=== PATIENT | female | born 1955 | race Caucasian/White ===

== ENCOUNTER 2018-05-24 08:02 | Day surgery (SDC) | payer MEDICARE ==
[~2018-05-24] VITALS: Ht 158.8 cm; Wt 83.8 kg
[2018-05-24 08:56] VITALS: BP 123/62; PULSE 75; TEMP 98.3
[2018-05-24] MEDS ORDERED: PROAIR HFA0.09 MG/AC IH (09:09)
[2018-05-24] MEDS ORDERED: HUMALOG100 U/ML SQ (09:10)
[2018-05-24] MEDS ORDERED: LANTUS100 U/ML SQ (09:11)
[2018-05-24] MEDS ORDERED: NEURONTIN600 MG/TAB PO (09:12)
[2018-05-24] MEDS ORDERED: EFFE25TA PO (09:12)
[2018-05-24] MEDS ORDERED: PRINZIDE 12.5 M1 TAB PO (09:14)
[2018-05-24] MEDS ORDERED: ZOCOR 40MG40 MG PO (09:14)
[2018-05-24] MEDS ORDERED: INVOKAMET PO (09:16)
[2018-05-24 09:35] VITALS: BP 112/62; PULSE 76; TEMP 98.2
[2018-05-24 09:50] VITALS: BP 111/53; PULSE 79
[2018-05-24 10:05] VITALS: BP 108/62; PULSE 68
== END 2018-05-24 10:33 | disposition home or self-care (01) ==
LOC: SDCO 08:02
DX: K22.70 Barrett's esophagus without dysplasia (principal); K21.9 Gastro-esophageal reflux disease without esophagitis; K76.6 Portal hypertension; K74.60 Unspecified cirrhosis of liver; I85.10 Secondary esophageal varices without bleeding; F32.9 Major depressive disorder, single episode, unspecified; F41.9 Anxiety disorder, unspecified; R16.0 Hepatomegaly, not elsewhere classified; D69.6 Thrombocytopenia, unspecified; Z90.710 Acquired absence of both cervix and uterus; Z90.49 Acquired absence of other specified parts of digestive tract; E11.9 Type 2 diabetes mellitus without complications; Z85.3 Personal history of malignant neoplasm of breast; Z92.3 Personal history of irradiation; Z92.21 Personal history of antineoplastic chemotherapy; Z85.41 Personal history of malignant neoplasm of cervix uteri
CPT/HCPCS: J2250; J3010; J7030

== ENCOUNTER → 2018-06-19 | Outpatient (CLI) | payer MEDICARE ==
[~2018-06-19] MED LIST: EFFE25TA PO; HUMALOG100 U/ML SQ; INVOKAMET PO; LANTUS100 U/ML SQ; NEURONTIN600 MG/TAB PO; PRINZIDE 12.5 M1 TAB PO; PROAIR HFA0.09 MG/AC IH; ZOCOR 40MG40 MG PO
== END ==
LOC: MC.RAD 10:00
DX: R92.0 Mammographic microcalcification found on diagnostic imaging of breast (principal); Z98.82 Breast implant status

== ENCOUNTER 2021-02-01 10:06 | Day surgery (SDC) | payer MEDICARE, MEDICAID ==
[2021-02-01] VITALS (7 sets, daily range): BP systolic 150–181; BP diastolic 91–98; PULSE 78–95
[~2021-02-01] VITALS: Ht 160 cm; Wt 78.8 kg
[2021-02-01 11:02] LABS: HEMATOCRIT 40.1 % (37.0-47.0); HEMOGLOBIN 13.1 g/dl (12.5-16.0); MEAN CELL VOLUME 84 fl (80.0-100.0); MEAN CORPUSCULAR HEMOGLOBIN 27 pg (27.0-31.0); MEAN CORPUSCULAR HGB CONC 33 g/dl (33.0-37.0); MEAN PLATELET VOLUME 10.7 fl (7.4-10.4); PLATELET COUNT 84 K/mm3 (130-400); RED BLOOD COUNT 4.78 M/mm3 (4.10-5.30); REDCELL DISTRIBUTION WIDTH-CV 13.4 % (11.5-14.5)
[2021-02-01 11:09] LABS: CALCIUM 9.6 mg/dL (8.4-10.2); CREATININE, serum 0.54 (0.52-1.25); POTASSIUM 4.5 mmol/L (3.4-5.0)
[2021-02-01 11:22] LABS: INR 1.1 (0.8-3.0); PROTHROMBIN TIME 12.6 SECONDS (9.7-12.8)
[2021-02-01 11:24] LABS: PARTIAL THROMBOPLASTIN TIME 31.6 SECONDS (26.0-37.0)
[2021-02-01] MEDS ORDERED: NOVOLOG 100U100 U/M1 SQ (11:57)
[2021-02-01] MEDS ORDERED: PRIL40 PO (11:58)
[2021-02-01] MEDS ORDERED: BENADRYL25 M2 PO (11:58)
[2021-02-01] MEDS ORDERED: CARTIA XT180 MG PO (11:59)
[2021-02-01] MEDS ORDERED: EFFEXOR-XR150 MG PO (12:00)
[2021-02-01] MEDS ORDERED: LASIX 20MG TABL20 MG PO (12:00)
[2021-02-01] MEDS ORDERED: REGLAN 5MG T5 MG/TAB PO (12:00)
[2021-02-01] MEDS ORDERED: MULTIVITAMIN PO (12:01)
--- NOTE | 2021-02-01 12:55 | NUR ---
SEE MERGE DOCUMENTATION FOR MEDICATION ADMINISTRATION TIMES AND INTRA/POST PROCEDURE SEDATION ASSESSMENTS.
--- NOTE | 2021-02-01 13:45 | NUR ---
pt to eu 11 via bed from laborer salvage, pt is awake and alert, sister in room, call light in reach, takes water and lunch ordered. no c/o
--- NOTE | 2021-02-01 15:00 | NUR ---
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
--- NOTE | 2021-02-01 15:45 | NUR ---
starting release of TR band, 2cc every 10 min with no bleeding or swelling noted at 1615 and band removed bandaid applied with coban for support. Pt up to b/r to void, tolerated well
--- NOTE | 2021-02-01 16:45 | NUR ---
reviewed dischage inst. with pt on care of site, activity and precautions on readial site with verbal understanding. 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 IV dc'd intact. pt up in room dressed and discharged via w/c to car with sister
== END 2021-02-01 16:50 | disposition home or self-care (01) ==
LOC: COL.CAR 10:06
PROVIDERS: Internal Medicine Cardiovascular Disease
DX: I35.0 Nonrheumatic aortic (valve) stenosis (principal); I20.0 Unstable angina; J84.10 Pulmonary fibrosis, unspecified; E11.9 Type 2 diabetes mellitus without complications; I10 Essential (primary) hypertension; Z20.822 Contact with and (suspected) exposure to COVID-19; Z86.73 Personal history of transient ischemic attack (TIA), and cerebral infarction without residual deficits
CPT/HCPCS: C1769; J1200; J1644; J2250; J2930; J3010; Q9967

== ENCOUNTER → 2022-01-04 | Outpatient (CLI) | payer MEDICARE, MEDICAID ==
[~2022-01-04] MED LIST changes: +BENADRYL25 M2 PO; +CARTIA XT180 MG PO; +EFFEXOR-XR150 MG PO; +LASIX 20MG TABL20 MG PO; +MULTIVITAMIN PO; +NOVOLOG 100U100 U/M1 SQ; +PRIL40 PO; +REGLAN 5MG T5 MG/TAB PO
== END ==
LOC: COL.RAD 09:27
DX: M25.562 Pain in left knee (principal); Z97.14 Presence of artificial left leg (complete) (partial)
CPT/HCPCS: A9503

== ENCOUNTER 2022-02-02 11:28 | Inpatient (IN) | payer MEDICARE, MEDICAID ==
[~2022-02-02] VITALS: Ht 162.6 cm; Wt 77.0 kg
[2022-03-13] VITALS (10 sets, daily range): BP systolic 106–167; BP diastolic 47–79; PULSE 74–90; TEMP 98.2–98.5
[2022-03-13] MEDS ORDERED: PRINIVIL10 MG PO (08:48)
[2022-03-13] MEDS ORDERED: ZOCOR 20MG20 MG PO (08:49)
[2022-03-13] MEDS ORDERED: SOLIQUA 100 UNIT3 ML SQ (08:50)
[2022-03-13] MEDS ORDERED: CRANBERRY465 MG PO (08:52)
[2022-03-13] MEDS ORDERED: VITAMIN C500 MG PO (08:53)
[2022-03-13] MEDS ORDERED: TYLENOL 8 HR PO (08:54)
[2022-03-13] MEDS ORDERED: MASON NATURAL500 MG PO (08:55)
[2022-03-13] MEDS ORDERED: SYSTANE 0.4%-0.1 SOL OU (08:56)
[2022-03-13] MEDS ORDERED: ADVIL200 MG PO (08:57)
--- NOTE | 2022-03-13 10:00 | NUR ---
Patient to surgey with Gokul transporter. Patient was admitted to room 329. Med rec completed. Patient was a hard Iv stick with a right restricted extremity. Multiple attempts made and avvanced Iv services was able to get Iv to [place]. Ns to gravity per orders. Yaw hoscontreras placed to Right leg & scrubed her left knee. Consent obtained. Will await her return from surgery.
--- NOTE | 2022-03-13 15:54 | NUR ---
Patient awake in bed . Alert and oriented x4. Dressing on left knee intact and ice pack in place. Patient is able to move left toes with no difficulty. Patient denies pain at this time.
--- NOTE | 2022-03-13 15:59 | NUR ---
Patient alert and oriented. Dressing on left knee intact. ICE pack in place. Patient is able to wiggle left toes. Patient voice of pain at the left knew and rated pain level 3/10. Scheduled tylenol 1000mg administered PO. Patient tolerated it well. Lunch ordered by patient. Will continue to assess pain level.
--- NOTE | 2022-03-13 17:06 | NUR ---
Patient reports of pain at the left knee. Patient rated pain level 5/10 and describes pain as sharp. 5mg of roxicodone administered per prn orders for pain. Will reassess pain level. Call [facility] place within reach.
--- NOTE | 2022-03-13 18:17 | NUR ---
Patient sitting up in bed eating dinner. Patient consumed 100% of dinner. Patient states patient level is down to 5/10. Left knee dressing intact. Emptied 30cc of drainage from the hemovac. ICE pack placed on the left knee. Patient used incentive spirometer effectively. Call harvey is place within reach.
--- NOTE | 2022-03-13 21:17 | NUR ---
PT A&OX4 RESTING IN BED. MEDS GIVEN AND ASSESSMENT COMPLETE. PT RATES LT KNEE PN A 11/01. DRESSING CDI, HEMOVAC W BLOODY DRAINAGE. SCDS AND TEDS APPLIED TO BLE. BS 186 AND REQUIRED 4U OF INSULIN. VS STABLE AND TELE IN PLACE. REPORTS IRRITATION IN LT EYE, EYE DROPS INSTILLED. INT TO LT AC PATENT. NO NEEDS AT THIS TIME. CALL LIGHT WITHIN REACH.
[2022-03-14 07:23] LABS: BASO % 0.7 % (0.0-2.0); EOS # 0.1 K/mm3 (0.0-0.7); EOS % 1.7 % (0.0-4.0); GRAN # 1.9 K/mm3 (1.4-6.5); GRAN % 65.2 % (42.2-75.2); LYMPH # 0.7 K/mm3 (1.2-3.4); LYMPH % 23.2 % (20.0-51.0); MEAN CELL VOLUME 82 fl (80.0-100.0); MEAN CORPUSCULAR HGB CONC 32 g/dl (33.0-37.0); MEAN PLATELET VOLUME 11.2 fl (7.4-10.4); MONO # 0.3 K/mm3 (0.1-0.6); MONO % 8.9 % (1.7-9.3); PLATELET COUNT 63 K/mm3 (130-400); RED BLOOD COUNT 3.53 M/mm3 (4.10-5.30); REDCELL DISTRIBUTION WIDTH-CV 14.5 % (11.5-14.5)
[2022-03-14 07:26] LABS: CALCIUM 8.3 mg/dL (8.4-10.2); CREATININE, serum 0.76 mg/dL (0.57-1.11)
[2022-03-14 07:59] LABS: HEMATOCRIT 28.8 % (37.0-47.0); HEMOGLOBIN 9.3 g/dl (12.5-16.0); MEAN CORPUSCULAR HEMOGLOBIN 26 pg (27-31)
[2022-03-14 08:00] VITALS: BP 151/56; PULSE 94; TEMP 99
--- NOTE | 2022-03-14 10:21 | NUR ---
PT UP TO RECLINER WITH THERAPY. PT RESTING, RAFI SU FOR VOLODYMYR IN TO SEE PT AND PULLED DRAIN. DRESSED WITH TEGADERM AND 4X4.
--- NOTE | 2022-03-14 10:38 | NUR ---
Initial visit; Patient very pleasant and friendly. 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 Supply Chain Planner will do so and offered God's blessings.
[2022-03-14 13:16] VITALS: BP 143/66; PULSE 79; TEMP 98.5
[2022-03-14 15:43] VITALS: BP 139/62; PULSE 75; TEMP 98
--- NOTE | 2022-03-14 15:50 | NUR ---
dynamic balancer set up worker met with patient to complete intake and discuss discharge plan. Patient reports that she lives in [place] with her adult son Celso Mi and moved to [facility] from [place] 3 months ago. Patient reports to being fully independent with her ADL's prior to surgery and utilizes a rollator walker to assist with ambulation. She has no home oxygen needs. PCP is Dr. Eugenio Abraham in [place]. She has no home oxygen needs. Patient reports that she does not have a DPOA-HC established and wishes to create one before discharge. Form and education provided to the patient. SW spoke with the patient about PT/OT recommending OP therapy and the different locations she can go to. Patient states that she has no transportation to get there. Her son does not drive and depends on her to take him to work. Her sister lives in [place] and "has health issues of her own". She has no social connections in [place] that can assist her. Patient is very open to HH, however she has a MCR.adv plan and most HH agencies do not contract with them. Discharge plan: Outpatient PT/OT vs HH
[2022-03-14 19:45] VITALS: BP 149/50; PULSE 77; TEMP 97.7
--- NOTE | 2022-03-14 19:50 | NUR ---
PT A&OX4 RESTING IN BED. MEDS GIVEN AND ASSESSMENT COMPLETE. VSS AND TELE IN PLACE. PT DENIES PN. LT KNEE AQAUCELL DRESSING CDI. LT AC INT PATENT. TEDS AND SCDS APPLIED TO RLE. NO NEEDS AT THIS TIME. CALL LIGHT WITHIN REACH.
[2022-03-15 00:33] VITALS: BP 125/84; PULSE 95; TEMP 98.6
[2022-03-15 04:41] VITALS: BP 144/71; PULSE 82; TEMP 98.9
[2022-03-15 06:54] LABS: CALCIUM 8.6 mg/dL (8.4-10.2); CREATININE, serum 0.72 mg/dL (0.57-1.11); POTASSIUM 4.6 mmol/L (3.5-4.5)
[2022-03-15 07:06] LABS: HEMATOCRIT 29.5 % (37.0-47.0); HEMOGLOBIN 9.4 g/dl (12.5-16.0)
[2022-03-15 07:15] VITALS: BP 145/70; PULSE 75; TEMP 98.6
[2022-03-15] MEDS ORDERED: CEPHALEXIN500 M1 PO (09:18)
[2022-03-15] MEDS ORDERED: NORCO 325 MG-51 TAB PO (09:18)
[2022-03-15] MEDS ORDERED: ASPIRIN 81M81 MG/TA2 PO (09:18)
[2022-03-15] MEDS ORDERED: WALKER MC (09:24)
--- NOTE | 2022-03-15 09:38 | NUR ---
PT UP TO RECLINER WITH SBA THERAPY. PT RESTING QUIETLY. DRESSING TO RIGHT KNEE CDI.
--- NOTE | 2022-03-15 13:05 | NUR ---
REVIEWED DISCHARGE INSTRUCTIONS WITH PT AND FAMILY. QUESTIONS SOLICITED AND ANSWERED. PT LEFT UNIT PER WHEEL CHAIR WITH STAFF. PT TO HAVE HOME HEALTH THERAPY WITH [facility].
--- NOTE | 2022-03-15 13:19 | NUR ---
M1A1 Tank Crewman followed up with patient about Home Health services. Patient is agreeable to Home Health and to have referral sent to [facility], which contracts with her insurance, [employer]. ILEANA contacted Francisco J at [facility] and faxed referral with discharge orders. Discharge Plan: Home with [facility]
== END 2022-03-15 13:08 | disposition home or self-care (01) | DRG 468 ==
LOC: SURG 02-06 11:00
PROVIDERS: Physician Assistant; ADMIT Orthopaedic Surgery
PROC: 0SRD0J9 Replacement of Left Knee Joint with Synthetic Substitute, Cemented, Open Approach (ICD-10-PCS; 2022-03-13)
PROC: 0SPD0JZ Removal of Synthetic Substitute from Left Knee Joint, Open Approach (ICD-10-PCS; principal; 2022-03-13 10:00)
DX: T84.023A Instability of internal left knee prosthesis, initial encounter (principal); Y83.8 Other surgical procedures as the cause of abnormal reaction of the patient, or of later complication, without mention of misadventure at the time of the procedure; I10 Essential (primary) hypertension; E78.5 Hyperlipidemia, unspecified; K21.9 Gastro-esophageal reflux disease without esophagitis; F32.A Depression, unspecified; E11.9 Type 2 diabetes mellitus without complications; I35.0 Nonrheumatic aortic (valve) stenosis; M25.461 Effusion, right knee; M19.90 Unspecified osteoarthritis, unspecified site; M79.7 Fibromyalgia; F41.9 Anxiety disorder, unspecified; J84.10 Pulmonary fibrosis, unspecified; S05.00XA Injury of conjunctiva and corneal abrasion without foreign body, unspecified eye, initial encounter; Z86.73 Personal history of transient ischemic attack (TIA), and cerebral infarction without residual deficits; Z79.4 Long term (current) use of insulin; Y92.89 Other specified places as the place of occurrence of the external cause; Z85.3 Personal history of malignant neoplasm of breast; Z85.42 Personal history of malignant neoplasm of other parts of uterus; Z91.041 Radiographic dye allergy status; Z91.048 Other nonmedicinal substance allergy status; Z72.89 Other problems related to lifestyle
CPT/HCPCS: A9284; C1713; C1776; J0690; J1815; J1885; J2250; J2270; J2704; J2795; J7030

== ENCOUNTER 2022-02-05 13:49 | Emergency (ER) | payer MEDICARE, MEDICAID ==
[~2022-02-05] VITALS: Ht 160 cm; Wt 76.8 kg
[2022-02-05 13:56] VITALS: TEMP 99
[2022-02-05 15:32] VITALS: BP 147/69; PULSE 75
== END 2022-02-05 15:38 | disposition home or self-care (01) ==
LOC: COL.ER 13:49
DX: M25.511 Pain in right shoulder (principal); M25.532 Pain in left wrist; W19.XXXA Unspecified fall, initial encounter

== ENCOUNTER 2023-12-24 11:37 | Inpatient (IN) | payer MEDICARE ==
[~2023-12-24] VITALS: Ht 152.4 cm; Wt 77.1 kg
[2023-12-24] VITALS (17 sets, daily range): BP systolic 135–162; BP diastolic 58–81; PULSE 62–76; TEMP 97.9–99.6
[~2023-12-24 11:37] MED LIST changes: +ADVIL200 MG PO; +ASPIRIN 81M81 MG/TA2 PO; +CEPHALEXIN500 M1 PO; +CRANBERRY465 MG PO; +FIASP 100100 UNIT/1 SQ; +MASON NATURAL500 MG PO; +NORCO 325 MG-51 TAB PO; +PRINIVIL10 MG PO; +SOLIQUA 100 UNIT3 ML SQ; +SYSTANE 0.4%-0.1 SOL OU; +TYLENOL 8 HR PO; +VITAMIN C500 MG PO; +WALKER MC; +ZOCOR 20MG20 MG PO
[2023-12-24] MEDS ORDERED: diphenhydrAMINE 50 MG/ML 1 ML VIAL IV ONE (12:00)
[2023-12-24 12:10] LABS: BASO % 0.3 % (0.0-2.0); EOS % 1.1 % (0.0-4.0); GRAN # 2.3 K/mm3 (1.4-6.5); GRAN % 64.5 % (42.2-75.2); HEMATOCRIT 35.2 % (37.0-47.0); HEMOGLOBIN 10.3 g/dl (12.5-16.0); LYMPH % 27.3 % (20.0-51.0); MEAN CELL VOLUME 74 fl (80.0-100.0); MEAN CORPUSCULAR HEMOGLOBIN 22 pg (27-31); MEAN CORPUSCULAR HGB CONC 29 g/dl (33.0-37.0); MEAN PLATELET VOLUME 10.1 fl (7.4-10.4); MONO # 0.2 K/mm3 (0.1-0.6); MONO % 6.8 % (1.7-9.3); PLATELET COUNT 88 K/mm3 (130-400); RED BLOOD COUNT 4.78 M/mm3 (4.10-5.30); REDCELL DISTRIBUTION WIDTH-CV 19.6 % (11.5-14.5)
[2023-12-24 12:24] LABS: ALBUMIN 4.4 g/dL (3.4-4.8); BILIRUBIN,TOTAL 0.6 mg/dL (0.2-1.2); CALCIUM 8.8 mg/dL (8.4-10.2); CREATININE, serum 0.76 mg/dL (0.57-1.11); POTASSIUM 4.1 mEq/L (3.5-4.5); TOTAL PROTEIN 7.9 g/dl (6.2-8.1)
[2023-12-24 13:10] LABS: COLLECTION METHOD CLEAN CATCH
[2023-12-24 13:21] LABS: URINE APPEARANCE CLOUDY (CLEAR/HAZY); URINE BLOOD TRACE (NEGATIVE); URINE COLOR YELLOW (YELLOW); URINE GLUCOSE NEGATIVE (NEGATIVE); URINE KETONE NEGATIVE (NEGATIVE); URINE NITRATE POSITIVE (NEGATIVE); URINE PROTEIN(semi-quant) NEGATIVE (NEGATIVE); URINE UROBILINOGEN 0.2 E.U/dL (0.2-1.0)
[2023-12-24] MEDS ORDERED: NS 1,000 ML IV SCH (13:45)
[2023-12-24] MEDS ORDERED: Dextrose 50% Water 25 GM/50 ML SYRINGE IV PRN (13:45)
[2023-12-24] MEDS ORDERED: Cefuroxime 250 MG TAB PO ONE (13:45)
[2023-12-24] MEDS ORDERED: Carboxymethylcellulose PF Ophth 0.4 ML DROPPERETTE OP PRN (14:00)
[2023-12-24] MEDS ORDERED: ADVIL200 MG PO (14:07)
[2023-12-24] MEDS ORDERED: ASPIRIN E.C. 8181 MG PO (14:12)
[2023-12-24] MEDS ORDERED: Acetaminophen 325 MG TAB PO ONE (14:15)
[2023-12-24] MEDS ORDERED: cefTRIAXone 1 G in Water For Injection,Sterile 10 ML IV SCH (14:30)
--- NOTE | 2023-12-24 14:58 | NUR ---
Pt left floor for MRI- orders received from Dr. Germain that pt can go without RN at bedside.
[2023-12-24] MEDS ORDERED: Gadoterate 20 ML VIAL IV ONE (15:01)
--- NOTE | 2023-12-24 15:05 | NUR ---
Pt arrived to ICU 8 via ER stretcher at 1411. Pt is A&O. NIH completed. Pt c/o head pain rating at 02/01. No slurred speech noted. Kimble in place with clear, yellow urine. Pt placed in yellow gown and socks, fall precuations in place and bed alarm activated. Pt has restricted extremity to right arm, bracelet in place. Pt sister at bedside as well. Assessment completed. Will continue with POC. Call light within reach.
--- NOTE | 2023-12-24 15:55 | NUR ---
Pt returned to unit from MRI. No changes in NIH. Pt continues to c/o head pain rating at 8/10, adminsitered tylenol per orders. Fall precautions in place. Bed alarm activated. Call light mian borges.
[2023-12-24] MEDS ORDERED: Insulin Lispro (HumaLOG) SQ SCH (17:00)
[2023-12-24] MEDS ORDERED: Pantoprazole 40 MG in NS 10 ML IV SCH (21:00)
[2023-12-24] MEDS ORDERED: Gabapentin 300 MG CAP PO SCH ×2 (21:23→21:28)
[2023-12-24] MEDS ORDERED: Acetaminophen 325 MG TAB PO PRN (21:30)
[2023-12-24] MEDS ORDERED: Simvastatin 20 MG **** subs to Atorvastatin 10 MG PO SCH (21:30)
[2023-12-25] VITALS (8 sets, daily range): BP systolic 148–163; BP diastolic 70–76; PULSE 77–89; TEMP 98.1–98.7
[2023-12-25] MEDS ORDERED: Dextrose (Glucose) 15 GM (4 x 3.75 GM) Chewable TABLET PACK PO PRN (09:30)
[2023-12-25] MEDS ORDERED: Dextrose 50% Water 25 GM/50 ML SYRINGE IV PRN (09:30)
[2023-12-25] MEDS ORDERED: Glucagon 1 MG VIAL IM PRN (09:30)
--- NOTE | 2023-12-25 09:56 | NUR ---
paste worker met with pt and her sister, Kitty [phone] to discuss intake information. She reports to live with her adult son, Celso Mi [phone] in [place]. She sees Dr. Rocha for PCP needs and obtains medications from [facility] with some difficulties. SW provided information on [facility] and obtaining coupons/samples from providers. Pt was agreeable to this information and her sister reports being able to give her a [facility] card. She reports to have lost her Medicaid due to an income increase. She is independent with ADLS, but sponge bathes as she cannot step over her bathtub edge. She uses a cane and rolator for DME. ILEANA advised PT/OT will assess her and make any reccomendations for discharge. ILEANA informed her the DPOA-HC on file listing her son and sister, Kitty is not valid with no signatures. Pt was aware of this and states Dr. Rocha gave her a copy to complete and she will do this. ILEANA advised her son, Celso is her NOK decision-maker at this time and she was agreeable to this. ILEANA informed IVANIA Kim of son being NOK. PT/OT pending Discharge Plan: home, tbd
--- NOTE | 2023-12-25 10:30 | NUR ---
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 Shannon has two sisters and seems to be a happy, thankful person. She was interested in spiritual care and was receptive to prayer and Display Coordinator offering God's blessings.
[2023-12-25 13:16] LABS: BASO % 0.4 % (0.0-2.0); EOS % 1.1 % (0.0-4.0); GRAN # 1.7 K/mm3 (1.4-6.5); GRAN % 59.5 % (42.2-75.2); LYMPH # 0.9 K/mm3 (1.2-3.4); LYMPH % 32.9 % (20.0-51.0); MEAN CELL VOLUME 72 fl (80.0-100.0); MEAN CORPUSCULAR HGB CONC 30 g/dl (33.0-37.0); MEAN PLATELET VOLUME 9.4 fl (7.4-10.4); MONO # 0.2 K/mm3 (0.1-0.6); MONO % 6.1 % (1.7-9.3); PLATELET COUNT 74 K/mm3 (130-400); RED BLOOD COUNT 4.52 M/mm3 (4.10-5.30); REDCELL DISTRIBUTION WIDTH-CV 19.2 % (11.5-14.5)
[2023-12-25 13:25] LABS: HEMATOCRIT 32.4 % (37.0-47.0); HEMOGLOBIN 9.6 g/dl (12.5-16.0); MEAN CORPUSCULAR HEMOGLOBIN 21 pg (27-31)
[2023-12-25 13:37] LABS: CALCIUM 8.4 mg/dL (8.4-10.2); CREATININE, serum 0.73 mg/dL (0.57-1.11); MAGNESIUM 1.9 mg/dL (1.6-2.6); POTASSIUM 3.7 mEq/L (3.5-4.5)
[2023-12-25] MEDS ORDERED: OMNICEF 300MG300 MG PO (16:36)
[2023-12-25] MEDS ORDERED: ASPIRIN E.C. 8181 MG PO (16:37)
[2023-12-25 17:44] LABS: CHOLESTEROL RISK RATIO 3.2
--- NOTE | 2023-12-25 19:46 | NUR ---
Patient discharged, IV removed without complications. Personal belongings gathered and family member pulled vehicle to emergency parking area and she was wheeled out via wheelchair. Patient educated on stroke like symtoms, new medications, pharmacy pick up operator and follow up appointments. All questions answered at this time.
[2023-12-25] MEDS ORDERED: Atorvastatin 10 MG TAB PO SCH (21:00)
== END 2023-12-25 17:00 | disposition home or self-care (01) | DRG 62 ==
LOC: COL.ER 11:37 → ICU 13:12
PROVIDERS: Family Medicine; ADMIT Internal Medicine
DX: I63.9 Cerebral infarction, unspecified (principal); N39.0 Urinary tract infection, site not specified; R29.705 NIHSS score 5; D69.6 Thrombocytopenia, unspecified; I10 Essential (primary) hypertension; K21.9 Gastro-esophageal reflux disease without esophagitis; F32.A Depression, unspecified; I35.0 Nonrheumatic aortic (valve) stenosis; E11.9 Type 2 diabetes mellitus without complications; Z79.4 Long term (current) use of insulin
CPT/HCPCS: A4314; A9575; J0696; J1815; J2470; J3101; J7030; Q3014